=== PATIENT | female | born 1975 | race Caucasian/White ===

== ENCOUNTER → 2017-01-10 | Outpatient (CLI) | payer BC | LOC: MOB LAB 14:26 | PROVIDERS: ATTEND Obstetrics & Gynecology | DX: R10.2 Pelvic and perineal pain (principal) | CPT/HCPCS: 87491; 87591 ==

== ENCOUNTER → 2017-01-12 | Outpatient (CLI) | payer BC ==
--- NOTE | 2017-01-12 21:03 | DI ---
US PELVIC-TRANSVAGINAL, US PELVIC COMPLETE (NON OB),01/12/2017 2:29 PM: Clinical History: Pelvic pain Previous Exam: None at this facility. Findings: Multiple transabdominal and endovaginal grayscale and color Doppler sonographic images are obtained t hrough the pelvis demonstrating a normal-appearing uterus measuring 8.4 x 4.0 x 5.0 cm with an endome trial stripe measuring 4 mm. The right ovary measures 1.6 x 1.0 x 2.4 cm with a normal sonographic appearance. The left ovary measures 1.7 x 1.4 x 2.3 cm also with a normal sonographic appearance. There is no sherley dence of torsion. Impression: Normal pelvic ultrasound.
== END ==
LOC: US 14:25
PROVIDERS: ATTEND Obstetrics & Gynecology
DX: R10.2 Pelvic and perineal pain (principal); R14.0 Abdominal distension (gaseous)
CPT/HCPCS: 76830; 76856